=== PATIENT | female | born 1950 | race Caucasian/White ===

== ENCOUNTER 2020-04-27 12:57 | Inpatient (IN) | payer MEDICAID, MEDICARE, SELFPAY ==
[~2020-04-27] VITALS: Ht 170.2 cm; Wt 82.6 kg
[2020-04-27 13:30] VITALS: BP_SYST 109
--- NOTE | 2020-04-27 13:30 | NUR ---
Placed in room 5. Placed on graphite pan drier tender, blood pressure machine and pulse oximeter. To gown for exam. Side rails up.
--- NOTE | 2020-04-27 13:31 | NUR ---
Patient came from a SNF via EMS for SOB and fever. On arrival patient had an elevated heart rate of 180, low grade fever, and 15LPM via NRB mask.
--- NOTE | 2020-04-27 13:37 | NUR ---
BART Flannery at bedside examining patient.
[2020-04-27] MEDS ORDERED: PIPERACILLIN/TAZOBACTAM 4.5 GM/VIAL (ZOSYN) IV ONE (13:51)
[2020-04-27] MEDS ORDERED: NACL 0.9% 1,000 ML IV ONE (14:00)
[2020-04-27] MEDS ORDERED: PIPERACILLIN/TAZO 4.5 GM in NS 100 ML IV ONE (14:00)
[2020-04-27 14:48] LABS: BASOPHILS % (AUTO) 0.1 % (0.0-2.0); HEMATOCRIT 31.8 % (36-48); HEMOGLOBIN 9.6 g/dL (12.0-16.0); LYMPHOCYTES # (AUTO) 0.3 K/uL (1.0-5.5); LYMPHOCYTES % (AUTO) 2.1 % (20.5-51.5); MEAN CORPUSCULAR HEMOGLOBIN 27 pg (27-31); MEAN CORPUSCULAR HGB CONC 30 % (32-36); MEAN CORPUSCULAR VOLUME 90 fL (79.0-98.0); MONOCYTES % (AUTO) 7.4 % (1.7-9.3); NEUTROPHILS % (AUTO) 90.4 % (40.0-70.0); PLATELET COUNT (AUTO) 320 K/uL (130-430); RED BLOOD CELL COUNT(AUTO) 3.53 MIL/uL (4.2-6.2); RED CELL DISTRIBUTION WIDTH 18.6 % (9.0-15.0); WHITE BLOOD COUNT (AUTO) 13.3 K/uL (4.8-10.8)
[2020-04-27] MEDS ORDERED: MAGNESIUM SULFATE 1 GM/2 ML VIAL IVP ONE (15:00)
[2020-04-27] MEDS ORDERED: METOPROLOL SUCCINATE 50 MG TAB.SR.24H (TOPROL XL) PO ONE (15:00)
[2020-04-27 15:11] LABS: CALCIUM 9.2 mg/dL (8.4-11.0); CREATININE 0.65 mg/dL (0.55-1.30); POTASSIUM 4.5 mmol/L (3.5-5.1)
[2020-04-27 15:23] LABS: ALBUMIN 2.5 g/dL (3.4-4.8); BILIRUBIN,DIRECT 0.1 mg/dL (0.0-0.3); TOTAL BILIRUBIN 0.3 mg/dL (0.0-1.0)
--- NOTE | 2020-04-27 15:46 | NUR ---
Patient will be admitted to care of Dr. Tee. Admitted to telemetry unit. No beds available at this time. Belongings list completed. Complete and up to date summary report printed. SBAR report to be given at bedside with opportunity for questions.
[2020-04-27 15:47] LABS: BILIRUBIN,URINE NEGATIVE (NEGATIVE); CLARITY/URINE SL CLOUDY (CLEAR); COLOR,URINE YELLOW (YELLOW); GLUCOSE,URINE NEGATIVE (NEGATIVE); KETONES,URINE NEGATIVE (NEGATIVE); LEUKOCYTE ESTERASE ,URINE NEGATIVE (NEGATIVE); NITRITE, URINE NEGATIVE (NEGATIVE); PROTEIN URINE TRACE (NEGATIVE); UROBILINOGEN,URINE 0.2 (0.2-1.0)
--- NOTE | 2020-04-27 15:55 | NUR ---
CONSULT PULMO. CONSULTING MD: DR. DRIVER SPOKE TO: DIALED: [phone] ORDERED BY: DR. LORENZ
[2020-04-27 15:58] LABS: BLOOD, URINE TRACE (NEGATIVE)
[2020-04-27 16:24] LABS: BACTERIA,URINE MODERATE /HPF (None Seen); RBC,URINE 0-3 /HPF (0-3); WBC,URINE 0-3 /HPF (0-3)
[2020-04-27 16:25] LABS: TRICHOMONAS,URINE None Seen /HPF (None Seen); YEAST,URINE None Seen /HPF (None Seen)
[2020-04-27] MEDS ORDERED: LACT1CAP14 PO (16:25)
[2020-04-27] MEDS ORDERED: IPRA42SP NS (16:25)
[2020-04-27] MEDS ORDERED: HYDR-1189 PO (16:25)
[2020-04-27] MEDS ORDERED: APIX5TAB PO (16:25)
[2020-04-27] MEDS ORDERED: PRED20TA PO (16:25)
[2020-04-27] MEDS ORDERED: DOCU100T10 PO (16:25)
[2020-04-27] MEDS ORDERED: SULF1TAB48 PO (16:25)
[2020-04-27] MEDS ORDERED: BUDE6HFA PO (16:25)
[2020-04-27] MEDS ORDERED: ALBU8.5H5 NS (16:25)
[2020-04-27] MEDS ORDERED: IPRA3AMP9 HHN (16:25)
[2020-04-27] MEDS ORDERED: FURO-149 PO (16:25)
[2020-04-27] MEDS ORDERED: MENT113O4 TP (16:25)
[2020-04-27] MEDS ORDERED: ACET325T39 PO (16:25)
[2020-04-27] MEDS ORDERED: METO75TA PO (16:25)
[2020-04-27] MEDS ORDERED: LEVA15HF6 PO (16:25)
[2020-04-27] MEDS ORDERED: QUET50TA PO (16:25)
[2020-04-27] MEDS ORDERED: FLUT9.9S NS (16:25)
[2020-04-27 16:26] LABS: MUCUS,URINE None Seen /LPF (None Seen)
--- NOTE | 2020-04-27 16:26 | NUR ---
Medication reconciliation completed with information provided by [facility]. Any prior medication reconciliation on file was reviewed and corrected.
[2020-04-27] MEDS ORDERED: VANCOMYCIN HCL 1,250 MG in NS 250 ML IV ONE (17:15)
[2020-04-27] MEDS ORDERED: IPRATROPIUM BROM 0.5 MG/2.5 ML VIAL.NEB (ATROVENT) INH PRN (17:15)
[2020-04-27] MEDS ORDERED: ALBUTEROL SULFATE 0.083% 2.5 MG/3 ML VIAL.NEB INH PRN (17:15)
--- NOTE | 2020-04-27 17:36 | NUR ---
Vancomycin not available. Red in pharmacy made aware.
[2020-04-27 17:50] VITALS: BP_SYST 116
[2020-04-27] MEDS ORDERED: IPRATROPIUM BROM 0.5 MG/2.5 ML VIAL.NEB (ATROVENT) INH SCH (19:00)
--- NOTE | 2020-04-27 19:15 | NUR ---
Report received from Anthony GALEAS for continuation of care.
--- NOTE | 2020-04-27 19:21 | NUR ---
End of life care decisions POLST COPY FORM PROVIDED by [facility]. Pt is DNR and DNI.
--- NOTE | 2020-04-27 19:50 | NUR ---
ADMISSION NOTE Received patient from ER via [facility], received report from GUDELIA BLAKELY. Patient admitted with diagnosis of Respiratory Failure. Patient oriented to hospital routine, call light, toileting and safety-patient verbalized understanding.
[2020-04-27 20:00] VITALS: BP_SYST 143
--- NOTE | 2020-04-27 20:00 | NUR ---
Initial RN notes Received pt from ED, pt AOx1, A fib on monitor. RT placed pt on Bipap 70% O2 sat 94-98%. No s/s distress noted. IV saline lock on R hand 18G flushes well w/ NS. Pt is NPO. Pt incontinent of urine. Pericare provided. Evert SCDs applied. Call light within reach. Bed low, locked, siderails up x3, alarm on. Covid isolation maintained. To monitor.
--- NOTE | 2020-04-27 21:32 | NUR ---
Promise Tee s/w Siomara
--- NOTE | 2020-04-27 21:33 | NUR ---
Order clarification Paged and spoke w/ Dr. Tee to clarify Zosyn (pt allergy to PCN). Per ok to give, was already given Zosyn in ED.
[2020-04-27] MEDS ORDERED: PIPERACILLIN/TAZOBACTAM 3.375 GM/VIAL (ZOSYN) IV ONE (22:07)
--- NOTE | 2020-04-27 22:30 | NUR ---
Skin care Pt incontinent of urine, pericare/skin care provided. Photos taken per protocol. Z guard barrier cream applied to IAD sacral/pericare area. To monitor.
--- NOTE | 2020-04-27 23:00 | NUR ---
MRSA collected MRSA nares collected and sent to lab per protocol.
[2020-04-28] VITALS: BP_SYST 118
[2020-04-28] MEDS: PIPERACILLIN/TAZO 3.375/DEX-IS 50 ML IV SCH ×4 (00:25→17:20)
--- NOTE | 2020-04-28 00:25 | NUR ---
Rounds Pt asleep, easily awakens, VSS, afebrile, O2 sat 98% on Bipap. IV antibiotic administered per MD order R. hand clear and patent. To monitor.
--- NOTE | 2020-04-28 04:10 | NUR ---
Rounds Pt sleeping no s/s distress noted, on Bipap saturation at 95%. Call light within reach. Bed low, locked, siderails up x3, alarm on. To monitor.
--- NOTE | 2020-04-28 06:00 | NUR ---
Closing notes Pt asleep, easily awakens. No s/s distress noted. Pt on bipap saturation 97-98%. IV antibiotic infusing at ordered rate R hand 18G clear and patent. NPO maintained. Pt incontinent of urine. Pericare provided and Z guard applied. Call light within reach. Bed low, locked, siderails up x3, alarm on. Covid isolation maintained. To endorse to Am nurse.
[2020-04-28] MEDS: ALBUTEROL SULFATE 0.083% 2.5 MG/3 ML VIAL.NEB INH SCH ×2 (08:00→12:00)
--- NOTE | 2020-04-28 08:00 | NUR ---
Initial note: Patient is awake, alert, oriented to name, bedrest. On Oxygen 90% FiO2 via BiPAP, no sign of distress. She is NPO.
[2020-04-28 08:30] VITALS: BP_SYST 125
--- NOTE | 2020-04-28 09:02 | NUR ---
Nutrition Update Alvin scale 13 noted. Pt admitted for respiratory failure Diet: NPO BMI: 28.5 kg/m2 RD to follow per nutrition care standards.
[2020-04-28] MEDS ORDERED: ENOXAPARIN SODIUM 40 MG/0.4 ML SYRINGE SUBCUT SCH (10:30)
--- NOTE | 2020-04-28 10:30 | NUR ---
MDs round: and Dr. Villalta make round at the same time. Inform them about patient's condition.
[2020-04-28] MEDS: DEXAMETHASONE SOD PHOSPHATE 10 MG/ML VIAL IVP SCH (11:39)
[2020-04-28 12:00] VITALS: BP_SYST 121
[2020-04-28 15:48] VITALS: BP_SYST 122
--- NOTE | 2020-04-28 16:19 | NUR ---
Rapid A-Fib: Patient is resting with BiPAP 90% FiO2. Tele monitor shows A-Fib with rate 120-140, ZR=500/74, Sat O2=96%. Page . Will Follow up.
[2020-04-28] MEDS ORDERED: DILTIAZEM HCL 25 MG/5 ML VIAL IVP ONE (17:00)
--- NOTE | 2020-04-28 17:15 | NUR ---
MD calls back: has called back and has ordered to give Cardizem 10 mg IVP x1 and Cardio consult.
--- NOTE | 2020-04-28 17:29 | NUR ---
CONSULTATION PAGED/CALLED Reason for Consultation: A FIB WITH RVR Person Who was Notified: BUDDY Consulting Physician: ESTHER IS FILM PROCESSING SUPERVISOR Bridge Manager Specialty: CARDIO Ordering Physician: GERDA
--- NOTE | 2020-04-28 18:30 | NUR ---
Closing note: Patient is stable with Oxygen 90% FiO2 via BiPAP, no sign of distress. She is still NPO. She has BM x 2 with loose stool. After Cardizem HR is down to ~110-120.
--- NOTE | 2020-04-28 19:30 | NUR ---
OPENING NOTE Received care of patient and SBAR report. Patient is stable with Oxygen 90% FiO2 via BiPAP, no s/s of acute distress, O2 sat is 95% on tele monitor. Patient is NPO. Safety and isolation precautions are in place. Will monitor.
[2020-04-28] MEDS: ALBUTEROL MDI INHALATION 8 GM INH INH SCH (19:32)
[2020-04-28 20:00] VITALS: BP_SYST 120
[2020-04-28] MEDS: DOCUSATE SODIUM 100 MG CAPSULE PO SCH (20:36)
[2020-04-28] MEDS: QUEtiapine FUMARATE 25 MG TABLET PO SCH (20:36)
[2020-04-28] MEDS: APIXABAN 2.5 MG TABLET PO SCH (20:36)
[2020-04-28] MEDS: METOPROLOL TARTRATE 25 MG TABLET PO SCH (20:36)
--- NOTE | 2020-04-28 21:10 | NUR ---
INCONTINENCE CARE Pt incontinent of urine, pericare/skin care provided. Z-guard barrier cream applied to IAD sacral/pericare area. Will continue to monitor.
[2020-04-29 00:31] VITALS: BP_SYST 106
[2020-04-29] MEDS: PIPERACILLIN/TAZO 3.375/DEX-IS 50 ML IV SCH ×4 (00:34→17:15)
--- NOTE | 2020-04-29 00:34 | NUR ---
Vitals/Antibiotic VSS. Zosyn hung as ordered and set to infuse at ordered rate. Safety and isolation precautions maintained. Will monitor.
[2020-04-29] MEDS: ALBUTEROL MDI INHALATION 8 GM INH INH SCH ×4 (01:50→19:10)
--- NOTE | 2020-04-29 06:00 | NUR ---
INCONTINENCE CARE Pt incontinent of urine and bowels, pericare/skin care provided. Z-guard barrier cream applied to IAD sacral/pericare area. Will continue to monitor.
--- NOTE | 2020-04-29 06:54 | NUR ---
CLOSING NOTE Patient is stable with Oxygen 90% FiO2 via BiPAP, no s/s of acute distress, O2 sat is 95% on tele monitor. Patient is NPO. Safety and isolation precautions are in place. Will endorse to day shift RN.
[2020-04-29 09:00] VITALS: BP_SYST 127
--- NOTE | 2020-04-29 09:00 | NUR ---
INCONTINENCE CARE Pt incontinent of urine, amanda care/skin care provided. Z-guard barrier cream applied to IAD sacral/amanda care area. Will continue to monitor.
--- NOTE | 2020-04-29 09:06 | NUR ---
0750 TO 0805 TIRED PT ON 6L OXYMIZER PER DR. MCMILLAN. PT DESAT TO86%. INCREASED TO 11L OXY. PT CONT TO DESAT. PLACED BACK ON BIPAP. DR. MCMILLAN AWARE. Addendum: 04/29/20 at 0907 by Mirna Martinez RT Amended: Links added.
[2020-04-29 09:15] LABS: BASOPHILS % (AUTO) 0.1 % (0.0-2.0); HEMATOCRIT 29.8 % (36-48); HEMOGLOBIN 9.4 g/dL (12.0-16.0); LYMPHOCYTES # (AUTO) 0.5 K/uL (1.0-5.5); LYMPHOCYTES % (AUTO) 5.8 % (20.5-51.5); MEAN CORPUSCULAR HEMOGLOBIN 28 pg (27-31); MEAN CORPUSCULAR HGB CONC 31 % (32-36); MEAN CORPUSCULAR VOLUME 90 fL (79.0-98.0); MONOCYTES # (AUTO) 0.8 K/uL (0.0-1.0); MONOCYTES % (AUTO) 8.2 % (1.7-9.3); NEUTROPHILS % (AUTO) 85.9 % (40.0-70.0); PLATELET COUNT (AUTO) 270 K/uL (130-430); RED BLOOD CELL COUNT(AUTO) 3.33 MIL/uL (4.2-6.2); RED CELL DISTRIBUTION WIDTH 18.2 % (9.0-15.0)
[2020-04-29 09:20] LABS: WHITE BLOOD COUNT (AUTO) 9.3 K/uL (4.8-10.8)
[2020-04-29 09:49] LABS: CALCIUM 10.1 mg/dL (8.4-11.0); CREATININE 1.13 mg/dL (0.55-1.30); POTASSIUM 4.2 mmol/L (3.5-5.1)
[2020-04-29 10:04] LABS: ALBUMIN 2.2 g/dL (3.4-4.8); THYROID STIMULATING HORMONE 0.98 uIu/mL (0.36-3.74); TOTAL BILIRUBIN 0.3 mg/dL (0.0-1.0)
[2020-04-29 10:35] LABS: C-REACTIVE PROTEIN QUANT 26.2 mg/dL (0-0.5)
--- NOTE | 2020-04-29 10:38 | NUR ---
PER MR ZAMBRANO, I WAS ASKED TO REQUEST LOUISE TO PUT BACK THE LEADS.
[2020-04-29] MEDS: QUEtiapine FUMARATE 25 MG TABLET PO SCH ×2 (11:11→20:27)
[2020-04-29] MEDS: DOCUSATE SODIUM 100 MG CAPSULE PO SCH ×2 (11:11→20:25)
[2020-04-29] MEDS: APIXABAN 2.5 MG TABLET PO SCH ×2 (11:12→20:26)
[2020-04-29] MEDS: METOPROLOL TARTRATE 25 MG TABLET PO SCH ×2 (11:12→19:03)
--- NOTE | 2020-04-29 11:13 | NUR ---
unable to administered morning medication. pt is drowsy. will try again later. on bipap 70% saturation 95-96%.
--- NOTE | 2020-04-29 11:22 | NUR ---
Notes: informed MD Tee about the elevated HR, new order received noted and carried out.
--- NOTE | 2020-04-29 11:25 | NUR ---
PER MTJUAN MANUEL, REQUESTED GUDELIA GIL TO PUT THE LEADS BACK.
--- NOTE | 2020-04-29 11:35 | NUR ---
PER JUAN MANUEL, INFORMED RN LOUISE THAT O2 SATURATION IS 70%.
[2020-04-29] MEDS: DEXAMETHASONE SOD PHOSPHATE 10 MG/ML VIAL IVP SCH (11:48)
[2020-04-29] MEDS: DILTIAZEM HCL 25 MG/5 ML VIAL IVP PRN ×2 (11:53→19:05)
--- NOTE | 2020-04-29 12:08 | NUR ---
Dietitian Recommendations *Recommend swallow eval to assess pt's swallowing ability d/t pt w/ dysphagia per EMR *Recommend continue Cardiac Diet as tolerated per , texture per CLINICAL TRIAL ASSISTANT if/when medically feasible Please see Nutrition Assessment for details.' KELLIE FRIAS Addendum: 04/29/20 at [address] CORRECTION: Dietitian Recommendations: *Recommend swallow eval to assess pt's swallowing ability d/t pt w/ dysphagia per EMR *Recommend continue Cardiac, Puree Diet as tolerated per , texture per CLINICAL TRIAL ASSISTANT if/when medically feasible KELLIE FRIAS
[2020-04-29 13:22] VITALS: BP_SYST 144
--- NOTE | 2020-04-29 13:35 | NUR ---
PER JUAN MANUEL, I ASKED GUDELIA GIL TO PUT THE LEADS BACK.
--- NOTE | 2020-04-29 13:55 | NUR ---
INCONTINENCE CARE Pt incontinent of urine, amanda care/skin care provided. Z-guard barrier cream applied to IAD sacral/amanda care area. Will continue to monitor.
--- NOTE | 2020-04-29 15:39 | NUR ---
PULMO CONSULT: MD DRIVER IS HERE, UPDATED PATIENT CURRENT CONDITION. NEW ORDER RECEIVED, HIGH FLOW OXYGEN AND IVF NS@ 75ML/HR.
[2020-04-29 16:31] VITALS: BP_SYST 123
[2020-04-29] MEDS: NACL 0.9% 1,000 ML IV SCH (16:54)
--- NOTE | 2020-04-29 17:08 | NUR ---
PER LIDIA ZAMBRANO, REQUESTED GUDELIA GIL TO PUT BACK THE LEADS, PT OFF MONITOR.
--- NOTE | 2020-04-29 18:07 | NUR ---
1750 PT PLACED ON HIFLOW 40L 35%. PT SAT 94% RN AWARE. Addendum: 04/29/20 at 1809 by Mirna Martinez RT Amended: Links added.
--- NOTE | 2020-04-29 19:11 | NUR ---
PATIENT HEART RATE GOES UP TO 145BPM. CARDIZEM 10MG IVP ADMINISTERED AND LOPRESSOR 75MG PO ADMINISTERED. INFORMED RESPIRATORY THERAPIES PATIENT SATURATION REMAIN 84%. ON 40 LITERS , FI02 85%.
--- NOTE | 2020-04-29 19:58 | NUR ---
I INFORMED RN ABOUT PULSE OX AND HR SHE ALREADY CALLED RT
--- NOTE | 2020-04-29 20:12 | NUR ---
PAGED I PAGED DR. LORENZ I SPOKE WITH ANTOINETTE
[2020-04-29 20:15] VITALS: BP_SYST 126
--- NOTE | 2020-04-29 20:20 | NUR ---
DR. LORENZ CALLED BACK
--- NOTE | 2020-04-29 21:30 | NUR ---
SPOKE TO GILMAR WALTON PT'S PERSON TO NOTIFY AND EDUCATED REGARDING RESTRAINTS. GILMAR WAS AGREEABLE TO THE USE OF RESTRAINTS IN ORDER TO PREVENT PT FROM TAKING OFF HER OXYGEN.
[2020-04-30] VITALS: BP_SYST 118
[2020-04-30] MEDS: ALBUTEROL MDI INHALATION 8 GM INH INH SCH ×3 (01:10→20:30)
[2020-04-30] MEDS: NACL 0.9% 1,000 ML IV SCH ×2 (05:05→10:30)
[2020-04-30] MEDS: PIPERACILLIN/TAZO 3.375/DEX-IS 50 ML IV SCH ×5 (05:38→23:38)
--- NOTE | 2020-04-30 07:22 | NUR ---
Closing note Pt asleep, easily awakens. No s/s distress noted. Pt on bipap AT 90% saturation 92%. IVF infusing at ordered rate. Pt incontinent of urine and bowels. Pericare provided and Z guard applied. Call light within reach. Bed low, locked, siderails up x3, alarm on. Covid isolation maintained. To endorse to day shift nurse. Addendum: 04/30/20 at 0723 by Radha Hill RN bilateral soft wrist restraints are in place with no s/s of impaired circulation.
[2020-04-30 08:00] VITALS: BP_SYST 158
--- NOTE | 2020-04-30 09:53 | NUR ---
REQUESTED JUAN MANUEL TO INFORM GUDELIA ACOSTA THAT PT'S HR IS GOING UP AND UP (> 150). CHEF DE PARTIE DR MCMILLAN IS AWARE.
--- NOTE | 2020-04-30 10:00 | NUR ---
rounds seen by dr grove and dr amaral. due meds given and took it with fidel.
[2020-04-30] MEDS: METOPROLOL TARTRATE 25 MG TABLET PO SCH ×2 (10:19→21:00)
[2020-04-30] MEDS: APIXABAN 2.5 MG TABLET PO SCH ×2 (10:19→21:00)
[2020-04-30] MEDS: QUEtiapine FUMARATE 25 MG TABLET PO SCH ×2 (10:20→21:00)
[2020-04-30] MEDS: DEXAMETHASONE SOD PHOSPHATE 10 MG/ML VIAL IVP SCH (10:21)
[2020-04-30] MEDS: DOCUSATE SODIUM 100 MG CAPSULE PO SCH ×2 (10:21→21:00)
[2020-04-30] MEDS: DILTIAZEM HCL 25 MG/5 ML VIAL IVP PRN (10:40)
[2020-04-30 12:00] VITALS: BP_SYST 100
[2020-04-30 12:54] VITALS: BP_SYST 158
--- NOTE | 2020-04-30 19:00 | NUR ---
closing notes report given to emir knapp iv is out . pt on bipap and sat at 94% . no sob noted. bed to the lowest position and side rail up and locked. call light within reached.
--- NOTE | 2020-04-30 19:15 | NUR ---
OPENING NOTE REPORT RECEIVED FROM DAYSHIFT NURSE. PATIENT RECEIVED LYING IN BED, EYES CLOSED, NO S/S OF ACUTE DISTRESS NOTED. HOB RAISED, BREATHING EVEN AND UNLABORED. BIPAP ATTACHED AND OPERATING, TOLERATING WELL, SPO2 AT 93. NO IV SITE. BED ALARM ON. BILATERAL SOFT WRIST RESTRAINTS ATTACHED, NO SIGNS OF INJURIES NOTED. BED IS LOCKED AND AT LOWEST POSITION. WILL CONTINUE TO MONITOR.
[2020-04-30 20:00] VITALS: BP_SYST 119
--- NOTE | 2020-04-30 20:30 | NUR ---
NEW IV NEW IV SITE INSERTED AT LEFT HAND, 24 GAUGE, IVF INFUSING WELL. WILL MONITOR AND REASSESS.
--- NOTE | 2020-04-30 22:00 | NUR ---
INCONTINENT CARE PATIENT CLEANED BY RN AND TRUSS DESIGNER. PATIENT TOLERATED WELL. ALL NEEDS MET. HOB RAISED. BIPAP ATTACHED AND OPERATING. IVF INFUSING WELL. BED ALARM ON. WILL CONTINUE TO MONITOR
[2020-05-01] VITALS: BP_SYST 112
--- NOTE | 2020-05-01 | NUR ---
ROUNDS PATIENT ASLEEP, NO S/S OF ACUTE DISTRESS NOTED. BREATHING EVEN AND UNLABORED. HOB RAISED. ALL NEEDS MET. BED ALARM ON. WILL CONTINUE TO MONITOR .
[2020-05-01] MEDS: ALBUTEROL MDI INHALATION 8 GM INH INH SCH (01:38)
--- NOTE | 2020-05-01 02:00 | NUR ---
ROUNDS HOB RAISED, NO S/S OF ACUTE DISTRESS. BREATHING EVEN AND UNLABORED. BIPAP ATTACHED AND OPERATING. RESTRAINTS REMOVED AT THIS TIME. PATIENT ASLEEP. WILL CONTINUE TO MONITOR.
--- NOTE | 2020-05-01 03:15 | NUR ---
rt notes 0300 RT got called to check pt. Upon checking, pt doing "agonal breathing". RT found bipap machine "vent inop", screen blackout. bipap machine plugged on Red outlet and bipap circuit no leak. RT tried to switch bipap plug to another red outlet, bipap started working again but saturation was down to 40-50%, faint pulse. BP wasn't reading. slowly pt went to asystole. 0315 two RN announced pt .
--- NOTE | 2020-05-01 03:15 | NUR ---
PRONOUNCED PATIENT'S BIPAP MACHINE ALARMING AT 0258, RT MADE AWARE, RT AT BEDSIDE AT 0300, PATIENT HAVING AGONAL BREATHING, RT ASSESSED BIPAP MACHINE, PLUG SWITCHED TO ANOTHER RED OUTLET, BIPAP STARTED WORKING AGAIN. PATIENT'S PULSE FAINT AT THIS TIME, SPO2 AT 40-50, SHOWING ASYSTOLE ON TELE MONITOR. PATIENT CANNOT BE AROUSED BY VERBAL OR TACTILE STIMULI. PATIENT'S SKIN IS PALE AND COLD. AT 0315, PATIENT SHOWED NO SIGNS OF BREATHING, NO CAROTID PULSE PALPATED. PRONOUNCED BY TWO RNs AT BEDSIDE. WILL CONDUCT POST-MORTEM PROTOCOL.
--- NOTE | 2020-05-01 05:06 | NUR ---
CALLED [facility] FOURTH TIME ATTEMPTING TO CONTACT GILMAR WALTON AT [phone], NO ANSWER, VOICEMAIL LEFT. WILL KEEP TRYING TO CONTACT NEXT OF KIN.
--- NOTE | 2020-05-01 05:22 | NUR ---
RIGO CALLED BACK GILMAR WALTON CALLED BACK, STATING SHE IS ONLY A FRIEND OF THE PATIENT, SHES NOT WILLING TO MAKE DECISIONS FOR THE PATIENT AND THAT SHE WILL TRY TO CONTACT THE PATIENT'S DAUGHTER.
--- NOTE | 2020-05-01 10:23 | NUR ---
notes/Body Hold: RISK CONTROL SPECIALIST spoke with friend Martha Riojas @ [phone]. Per Martha, pt has a daughter in [place], Linda (no phone #). Martha contacts Linda via messenger and is still awaiting for her response. Per Martha, Linda is not involved with pt. RISK CONTROL SPECIALIST provided Martha with SS phone number to give to Linda when she communicates. Case referred to Public [facility] [employer]er's office; form faxed. RISK CONTROL SPECIALIST phoned [facility] for possible body hold; unable to at this time, ramon jackson. Addendum: 05/01/20 at 1346 by [place] DONALD RISK CONTROL SPECIALIST spoke with Milvia from [facility] who agreed to process the pt's electronic certificate; facesheet faxed.
--- NOTE | 2020-05-02 16:15 | NUR ---
SS notes. ACCOUNT SOLUTIONS ANALYST called [facility], and spoke to Fernanda who stated she will have an update on Monday and asked ACCOUNT SOLUTIONS ANALYST to call back then and they are unable to picker/puller the body. ACCOUNT SOLUTIONS ANALYST will remain available as needed. Addendum: 05/04/20 at 1139 by Tiffanie Frey MSW SS notes. ACCOUNT SOLUTIONS ANALYST called [facility] and spoke to Milvia who stated they are waiting for the Health Department to approve paperwork. ACCOUNT SOLUTIONS ANALYST can call for future updates.
--- NOTE | 2020-05-05 08:24 | NUR ---
BRYNN notes/late entry: BLAST SETTER faxed initial decedent referral report form to Public [employer] on 05/01/20. EA# [id number]. Addendum: 05/05/20 at 1009 by [place] DONALD BLAST SETTER spoke with Milvia from [facility] who stated pt's Electronic Certificate has been registered. [facility] will arrange for transport to [facility] and update BRYNN. Addendum: 05/05/20 at 1333 by [place] DONALD BLAST SETTER received a call from Fernanda with [facility]. Per Fernanda, she contacted [facility] to schedule a drop off but was told that they won't be able to accept the transfer until mid. Cathleen sanabria.
== END 2020-05-01 03:15 | disposition expired | DRG 720 ==
LOC: SED 12:57 → STU 15:43
PROVIDERS: ADMIT Internal Medicine Hospice and Palliative Medicine; ATTEND Internal Medicine Hospice and Palliative Medicine
PROC: 5A09457 Assistance with Respiratory Ventilation, 24-96 Consecutive Hours, Continuous Positive Airway Pressure (ICD-10-PCS; principal; 2020-04-27)
DX: A41.9 Sepsis, unspecified organism (principal); U07.1 COVID-19; J12.89 Other viral pneumonia; J96.01 Acute respiratory failure with hypoxia; J44.1 Chronic obstructive pulmonary disease with (acute) exacerbation; F20.9 Schizophrenia, unspecified; I48.20 Chronic atrial fibrillation, unspecified; F31.9 Bipolar disorder, unspecified; J44.0 Chronic obstructive pulmonary disease with (acute) lower respiratory infection; Z88.6 Allergy status to analgesic agent; Z88.1 Allergy status to other antibiotic agents; Z88.0 Allergy status to penicillin; Z79.899 Other long term (current) drug therapy; Z79.01 Long term (current) use of anticoagulants; Z85.819 Personal history of malignant neoplasm of unspecified site of lip, oral cavity, and pharynx; Z85.41 Personal history of malignant neoplasm of cervix uteri; Z87.891 Personal history of nicotine dependence; Z92.3 Personal history of irradiation; I50.9 Heart failure, unspecified
CPT/HCPCS: 36415; 36600; 71045; 76604; 80048; 80053; 80076; 81000-TC; 82728; 82803-TC; 83605; 83690-TC; 83880; 84443-TC; 84484; 85025; 86140; 87040-TC; 87081; 87086; 93005; 94640; 94660; 94664; 96365; 96367; 96375; 99291; G0378; J1100; J2543; J3370; J3475; J3490; J7050